=== PATIENT | female | born 1940 ===

== ENCOUNTER 2023-04-23 23:26 | Inpatient (IN) | payer MEDICARE, OTHER ==
[~2023-04-23] VITALS: Ht 157.5 cm; Wt 68.6 kg
[2023-04-23] MEDS ORDERED: LOSA25TA3 PO (23:49)
[2023-04-23] MEDS ORDERED: DULO20CA PO (23:49)
[2023-04-23] MEDS ORDERED: DOXE3TAB4 PO (23:49)
[2023-04-23] MEDS ORDERED: OMEP20TA20 PO (23:49)
[2023-04-23] MEDS ORDERED: QUET25TA PO (23:49)
[2023-04-23] MEDS ORDERED: LEVO25TA2 PO (23:49)
[2023-04-23] MEDS ORDERED: ROSU5TAB PO (23:49)
[2023-04-23] MEDS ORDERED: OXYC-128 PO (23:49)
[2023-04-24 00:48] LABS: BASOPHILS # (AUTO) 0.1 K/UL (0.0-0.2); BASOPHILS % (AUTO) 0.8 % (0.0-2.0); DIFFERENTIAL COMMENT 0; EOSINOPHILS # (AUTO) 0.1 K/uL (0.0-0.7); EOSINOPHILS % (AUTO) 1.7 % (0.0-7.0); HEMATOCRIT 30.7 % (31.2-41.9); LYMPHOCYTES # (AUTO) 1.6 K/uL (0.8-4.8); LYMPHOCYTES % (AUTO) 21.4 % (20.5-51.5); MEAN CORPUSCULAR HGB CONC 33 g/dL (32.3-35.6); MEAN CORPUSCULAR VOLUME 89.2 fL (75.5-95.3); MONOCYTES # (AUTO) 0.5 K/uL (0.1-1.30); MONOCYTES % (AUTO) 7.1 % (0.0-11.0); PLATELET COUNT (AUTO) 183 K/uL (179-408); RED BLOOD CELL COUNT(AUTO) 3.44 MIL/uL (3.63-4.92); RED CELL DISTRIBUTION WIDTH 16.7 % (12.3-17.7); WHITE BLOOD COUNT (AUTO) 7.3 K/uL (3.8-11.8)
[2023-04-24 00:51] LABS: ETHANOL < 3 MG/DL (0-10)
[2023-04-24 01:09] LABS: CALCIUM 8.9 mg/dL (8.5-10.1); CARBON DIOXIDE 30 mmol/L (21-32); CHLORIDE 97 mmol/L (98-107); CREATININE 1.1 mg/dL (0.6-1.3); GLUCOSE 121 mg/dL (74-106); POTASSIUM 3.3 mmol/L (3.5-5.1); SODIUM SERUM 136 mmol/L (136-145); UREA NITROGEN, BLOOD 19 mg/dL (7-18)
[2023-04-24 01:10] VITALS: O2SAT 96
[2023-04-24 01:14] LABS: ALANINE AMINOTRANSFERASE 13 U/L (14-59); ALBUMIN 3.7 g/dL (3.4-5.0); ALKALINE PHOSPHATASE 69 U/L (50-136); ASPARTATE AMINOTRANSFERASE 12 U/L (15-37); BILIRUBIN,DIRECT 0.1 mg/dL (0.0-0.2); BILIRUBIN,TOTAL 0.5 mg/dL (0.2-1.0); TOTAL PROTEIN, SERUM 6.7 g/dL (6.4-8.2)
[2023-04-24] MEDS ORDERED: IV NS + KCL 40 MEQ 1000 ML BAG IV ONE (01:30)
[2023-04-24 01:45] LABS: ACETAMINOPHEN < 10.0 ug/mL (10-30)
[2023-04-24 01:47] LABS: THYROID STIMULATING HORMONE 2.023 mIU/mL (0.358-3.740)
[2023-04-24] MEDS ORDERED: IV NS + KCL 40 MEQ 1000 ML BAG 1,000 ML IV ONE (01:57)
[2023-04-24] MEDS ORDERED: IV NS 1000 ML 1,000 ML IV PRN (02:30)
[2023-04-24] MEDS ORDERED: ZOLPIDEM 5 MG TABLET PO PRN (02:30)
[2023-04-24] MEDS ORDERED: ACETAMINOPHEN 325 MG TABLET PO PRN (02:30)
[2023-04-24] MEDS ORDERED: REMEDY ESSENTIAL ZINC PASTE 113 GM TP PRN (02:30)
[2023-04-24] MEDS ORDERED: ONDANSETRON 4 MG/2 ML VIAL IV PRN (02:30)
[2023-04-24] MEDS ORDERED: MAGNESIUM HYDROXIDE 30 ML LIQUID UDC PO PRN (02:30)
[2023-04-24 03:07] VITALS: BP 128/64; TEMP 98.4; O2SAT 95
[2023-04-24 11:52] VITALS: BP 117/55; TEMP 98.5; O2SAT 98
== END 2023-04-24 16:15 | disposition left against medical advice (07) | DRG 917 ==
LOC: ER 23:30 → TELE3 04-24 02:12 → MEDSURG3 04-24 03:05 → TELE3 04-24 03:42
PROVIDERS: ADMIT Nurse Practitioner Acute Care; ATTEND Nurse Practitioner Acute Care
DX: T65.91XA Toxic effect of unspecified substance, accidental (unintentional), initial encounter (principal); G92.8 Other toxic encephalopathy; J96.01 Acute respiratory failure with hypoxia; N17.9 Acute kidney failure, unspecified; R55 Syncope and collapse; Y92.039 Unspecified place in apartment as the place of occurrence of the external cause; I11.0 Hypertensive heart disease with heart failure; E87.6 Hypokalemia; D64.9 Anemia, unspecified; M81.0 Age-related osteoporosis without current pathological fracture; E78.5 Hyperlipidemia, unspecified; E03.9 Hypothyroidism, unspecified; E86.0 Dehydration; G47.00 Insomnia, unspecified; G89.29 Other chronic pain; Z53.29 Procedure and treatment not carried out because of patient's decision for other reasons; I50.9 Heart failure, unspecified; Z79.890 Hormone replacement therapy; Z79.899 Other long term (current) drug therapy
CPT/HCPCS: 70450; 71045; 84443; 84484; 85025; 85730; 93005; 93307; A4606; A4663; G0378; G0480; J7040